=== PATIENT | female | born 1970 | race Caucasian/White ===

== ENCOUNTER → 2025-08-26 | Outpatient (CLI) | payer OTHER, SELFPAY ==
--- NOTE | 2025-08-26 13:56 | VDLE_ITS ---
Reason For Study VL/Venous Duplex US - Basilio Extrem
== END | disposition home or self-care (01) ==
LOC: CVS 13:54
PROVIDERS: PCP Family Medicine; Referring Provider Podiatrist; Visit Provider Podiatrist
DX: I87.2 Venous insufficiency (chronic) (peripheral) (principal); M79.661 Pain in right lower leg; M79.662 Pain in left lower leg
CPT/HCPCS: 93970